=== PATIENT | female | born 1965 | race Two or more races ===

== ENCOUNTER 2017-09-16 01:29 | Inpatient (IN) | payer OTHER ==
[~2017-09-16] VITALS: Ht 167.6 cm; Wt 73.0 kg
--- NOTE | 2017-09-16 01:35 | NUR ---
TO BED 4 A 52 YO FEMALE PATIENT BIBRA C/O LEFT SIDED CHEST PAIN [id number]. PATIENT IS AAOX4, NAD NOTED, BREATHING EVEN AND UNLABORED. SKIN WARM AND DRY. PLACED ON CARDIAC AND VS MONITORING. COMFORT MEASURES RENDERED.
--- NOTE | 2017-09-16 02:09 | NUR ---
started a saline lock on the right ac g20, blood drawn and sent to lab.
[2017-09-16] MEDS ORDERED: ASPIRIN 325 MG TABLET ONE (02:13)
[2017-09-16] MEDS ORDERED: NITROGLYCERIN 0.4 MG/TAB BOTTLE ONE (02:13)
[2017-09-16 02:19] LABS: BASOPHILS % (AUTO) 0.5 % (0.0-2.0); EOSINOPHILS # (AUTO) 0.1 /CMM (0.0-0.7); EOSINOPHILS % (AUTO) 1.1 % (0.0-6.0); HEMATOCRIT 34 % (33-45); HEMOGLOBIN 11.4 g/dL (11.5-14.8); LYMPHOCYTES # (AUTO) 1.8 /CMM (0.8-4.8); LYMPHOCYTES % (AUTO) 23.4 % (20.0-44.0); MEAN CORPUSCULAR HEMOGLOBIN 29 PG (26.0-33.0); MEAN CORPUSCULAR HGB CONC 34 g/dl (31.0-36.0); MEAN CORPUSCULAR VOLUME 87 fL (82-100); MONOCYTES # (AUTO) 0.4 /CMM (0.1-1.30); MONOCYTES % (AUTO) 5.2 % (2.0-12.0); NEUTROPHILS # (AUTO) 5.5 /CMM (1.8-8.9); NEUTROPHILS % (AUTO) 69.8 % (43.0-81.0); PLATELET COUNT (AUTO) 197 /CMM (150-450); RDW COEFFICIENT OF VARIATION 13.3 (11.5-15.0); RED BLOOD CELL COUNT(AUTO) 3.88 MIL/uL (4.0-5.2); WHITE BLOOD COUNT (AUTO) 7.9 K/uL (4.3-11.0)
--- NOTE | 2017-09-16 02:28 | NUR ---
after 2 doses of nitro sl, chest pain is about 1-2/10 from 02/18 initially. patient refused for 3rd dose of nitro. vss. ongoing monitoring. daughter at bedside.
[2017-09-16 02:30] LABS: CALCIUM, SERUM 8.9 mg/dL (8.5-10.1); CARBON DIOXIDE 26 mmol/L (21-32); CHLORIDE 108 mmol/L (98-107); CREATININE 1.2 mg/dL (0.6-1.3); GLUCOSE 103 mg/dL (74-106); POTASSIUM 3.6 mmol/L (3.5-5.1); SODIUM SERUM 141 mmol/L (136-145); UREA NITROGEN, BLOOD 24 mg/dL (7-18)
[2017-09-16] MEDS ORDERED: ASPIRIN 325 MG TABLET PO ONE (02:30)
[2017-09-16] MEDS ORDERED: NITROGLYCERIN 0.4 MG/TAB BOTTLE SL ONE (02:30)
[2017-09-16] MEDS ORDERED: AMIO200T2 PO (02:32)
[2017-09-16] MEDS ORDERED: SIMV40TA5 PO (02:32)
[2017-09-16] MEDS ORDERED: METO25TA6 PO (02:32)
[2017-09-16] MEDS ORDERED: WARF2TAB6 PO ×2 (02:32)
[2017-09-16] MEDS ORDERED: CHOL20004 PO (02:32)
[2017-09-16 02:36] LABS: INR 2.11 (0.87-1.13)
[2017-09-16 02:38] LABS: TROPONIN I < 0.017 ng/mL (0.00-0.056)
[2017-09-16 02:43] LABS: B-TYPE NATRIURETIC PEPTIDE 602 PG/ML (0-125)
--- NOTE | 2017-09-16 03:08 | NUR ---
Report given to Camille DOTSON for admission and negar.
[2017-09-16 03:15] VITALS: BP 139/74
--- NOTE | 2017-09-16 03:20 | NUR ---
Transferred patient to tele bed 114-2 via als protocol, no incident noted. vss.
[2017-09-16] MEDS ORDERED: METOPROLOL TARTRATE 25 MG TABLET PO ONE (03:30)
[2017-09-16] MEDS ORDERED: ONDANSETRON HCL/PF 4 MG/2 ML VIAL IVP PRN (03:30)
[2017-09-16] MEDS ORDERED: NITROGLYCERIN 0.4 MG/TAB BOTTLE SL PRN (03:30)
[2017-09-16] MEDS ORDERED: MORPHINE SULFATE INJ 2 MG/ML DISP.SYRIN IV PRN (03:30)
--- NOTE | 2017-09-16 03:45 | NUR ---
COTA NOTE RECEIVED PATIENT AWAKE, ALERT AND ORIENTED VIA [facility] FROM ER. DAUGHTER AT BEDSIDE. DENIES ANY CHEST PAIN OR DISCOMFORT AT THIS TIME. ABLE TO AMBULATE. ABLE TO MAKE NEEDS KNOWN. IV SITE INTACT TO RAC. NO REDNESS NOTED. SKIN INTACT, NO BREAKDOWN OR BRUISING NOTED. TELE MONITOR PLACED. PATIENT IS A.PACING @ 70 AT THIS TIME. ORIENTED TO ROOM AND TO UNIT. ALL BELONGINGS CHECKED AND ACCOUNTED FOR. MED RECON COMPLETE. BED LOCKED AND IN LOWEST POSITION. SIDE RAILS UP, CALL LIGHT WITHIN REACH. WILL CONTINUE TO MONITOR.
--- NOTE | 2017-09-16 06:07 | NUR ---
FISH STRAIGHTENER NOTE PATIENT STABLE. SLEEPING AT THIS TIME. ALL NEEDS MET AND ATTENDED TO. WILL ENDORSE TO DAY SHIFT FOR BALJIT.
--- NOTE | 2017-09-16 07:30 | NUR ---
PT RECEIVED RESTING COMFORTABLY IN BED. NO S/S OR C/O PAIN OR DISTRESS NOTED. SIDE RAILS UP X2, CALL LIGHT LEFT WITHIN REACH. WILL CONTINUE PLAN OF CARE.
[2017-09-16 08:00] VITALS: BP 128/66
[2017-09-16] MEDS: METOPROLOL TARTRATE 25 MG TABLET PO SCH ×2 (09:47→17:12)
[2017-09-16] MEDS: AMIODARONE HCL 200 MG TABLET PO SCH ×2 (09:47→17:12)
[2017-09-16] MEDS: ASPIRIN 81 MG TAB.CHEW PO SCH (09:47)
[2017-09-16 12:00] VITALS: BP_SYST 135; BP_SYST 145; BP_DIAS 77; BP_DIAS 78
[2017-09-16 16:00] VITALS: BP 145/77
[2017-09-16] MEDS ORDERED: WARFARIN SODIUM 2 MG TABLET PO SCH (17:00)
[2017-09-16] MEDS ORDERED: SIMVASTATIN 40 MG TABLET PO SCH (18:00)
--- NOTE | 2017-09-16 18:05 | NUR ---
PATIENT HAVING DINNER. COME BACK FOR ECHO.
--- NOTE | 2017-09-16 19:43 | NUR ---
CHANGE OF SHIFT REPORT PT RESTING COMFORTABLY IN BED. NO S/S OR C/O PAIN OR DISTRESS NOTED. SIDE RAILS UP X2, CALL LIGHT LEFT WITHIN REACH. PT KEPT CLEAN DRY, AND COMFORTABLE. NO SIGNIFICANT CHANGES SINCE PREVIOUS SHIFT. REPORT GIVEN TO EMIL DOTSON.
[2017-09-16 20:00] VITALS: BP 135/69
--- NOTE | 2017-09-16 20:00 | NUR ---
tele/rn notes Patient in bed, alert, oriented x3, able to verbalize needs, ambulatory, family at bedside, tele reading at a pacing 70, skin intact, monitoring for pain and keep safe and keep comfortable, right ac gauge 20hl, will continue to monitor, Bed in lock position, call lights within reach.
--- NOTE | 2017-09-16 22:01 | NUR ---
tele/rn notes patient reported generalized pain of 8/10 does not want to take morphin prefer tylenol 650mg oi by mouth, with low grade fever, md made aware and ordered for tylenol 650mg po prn.
[2017-09-16] MEDS ORDERED: ACETAMINOPHEN 325 MG TABLET PO PRN (22:30)
[2017-09-17 03:24] LABS: BASOPHILS % (AUTO) 0.5 % (0.0-2.0); EOSINOPHILS # (AUTO) 0.1 /CMM (0.0-0.7); EOSINOPHILS % (AUTO) 2.4 % (0.0-6.0); HEMATOCRIT 36 % (33-45); HEMOGLOBIN 12.1 g/dL (11.5-14.8); LYMPHOCYTES % (AUTO) 39.7 % (20.0-44.0); MEAN CORPUSCULAR HEMOGLOBIN 30 PG (26.0-33.0); MEAN CORPUSCULAR HGB CONC 34 g/dl (31.0-36.0); MEAN CORPUSCULAR VOLUME 88 fL (82-100); MONOCYTES # (AUTO) 0.4 /CMM (0.1-1.30); MONOCYTES % (AUTO) 7.8 % (2.0-12.0); NEUTROPHILS # (AUTO) 2.5 /CMM (1.8-8.9); NEUTROPHILS % (AUTO) 49.6 % (43.0-81.0); PLATELET COUNT (AUTO) 220 /CMM (150-450); RDW COEFFICIENT OF VARIATION 12.9 (11.5-15.0); RED BLOOD CELL COUNT(AUTO) 4.07 MIL/uL (4.0-5.2); WHITE BLOOD COUNT (AUTO) 5.1 K/uL (4.3-11.0)
[2017-09-17 03:40] LABS: CALCIUM, SERUM 8.7 mg/dL (8.5-10.1); MAGNESIUM 1.9 mg/dL (1.8-2.4); PHOSPHORUS 4.8 mg/dL (2.5-4.9); POTASSIUM 3.4 mmol/L (3.5-5.1)
--- NOTE | 2017-09-17 06:41 | NUR ---
TELE/RN CLOSING NOTES PATIENT IN BED, RESTING COMFORTABLY. RESPIRATIONS EVEN AND UNLABORED, ON SR. SKIN WARM TO TOUCH, NO GRIMACE AND GUARDING, CALL LIGHTS WITHIN REACH, BED IN LOCK POSITION WILL CONTINUE TO MONITOR,
[2017-09-17 08:00] VITALS: BP 106/56
[2017-09-17] MEDS: METOPROLOL TARTRATE 25 MG TABLET PO SCH (09:00)
[2017-09-17] MEDS: ASPIRIN 81 MG TAB.CHEW PO SCH (09:58)
[2017-09-17] MEDS: AMIODARONE HCL 200 MG TABLET PO SCH (09:59)
[2017-09-17 10:52] LABS: INR 2.56 (0.87-1.13)
[2017-09-17] MEDS ORDERED: POTASSIUM CHLORIDE 20 MEQ TAB.PRT.SR PO SCH ×2 (11:00→12:30)
[2017-09-17 12:00] VITALS: BP 104/54
--- NOTE | 2017-09-17 15:05 | NUR ---
POTASSIUM REPLACEMENT DONE WITH K-DUR.PT. COOPERATIVE,VS STABLE.DC INSTRUCTIONS GIVEN,HEP LOCK OUT.BELONGING SHEET SIGNED. TAKEN TO LOBBY ESCORTED BY SISTER AND CHILD CARE CENTER ADMINISTRATOR.
[2017-09-18] MEDS ORDERED: WARFARIN SODIUM 1 MG TABLET PO SCH (17:00)
[2017-09-21] MEDS ORDERED: ERGOCALCIFEROL (VITAMIN D 2) 50,000 UNIT CAPSULE PO SCH (09:00)
== END 2017-09-17 15:30 | disposition home or self-care (01) | DRG 203 ==
LOC: ER 01:30 → TELE1 02:55 → MEDSG1 09-17 12:12
PROVIDERS: ADMIT Internal Medicine; ATTEND Internal Medicine
DX: R07.9 Chest pain, unspecified (principal); I10 Essential (primary) hypertension; Z95.1 Presence of aortocoronary bypass graft; Z95.3 Presence of xenogenic heart valve; Z79.01 Long term (current) use of anticoagulants; E78.5 Hyperlipidemia, unspecified; Z95.0 Presence of cardiac pacemaker; I48.0 Paroxysmal atrial fibrillation
CPT/HCPCS: 36415; 71045-TC; 80048-TC; 80061-TC; 83735-TC; 83880; 84100-TC; 84484-TC; 85025-TC; 85610-TC; 85730-TC; 87081-TC; 93307-TC; A4606; Z7610